=== PATIENT | male | born 1975 | race Hispanic/Latino ===

== ENCOUNTER 2018-10-11 01:54 | Emergency (ER) | payer SELFPAY ==
[2018-10-11 03:03] LABS: #Basophils 0.1 thou/uL (0.0-0.2); #Eosinphils 0.4 thou/uL (0.0-0.7); #Lymphocytes 2.8 thou/uL (1.20-3.40); #Monocytes 0.7 thou/uL (0.11-0.59); %Eosinophils 4.2 % (0.0-10.0); %Lymphocytes 30.9 % (21.0-51.0); %Monocytes 7.8 % (0.0-10.0); %Neutrophils 56.2 % (42.0-75.0); Hemoglobin 14.3 g/dL (14.0-18.0); Mean Corpuscular HGB CONC 34.2 g/dL (32.0-36.0); Mean Corpuscular Hemoglobin 32.4 pg (27.0-31.0); Mean Corpuscular Volume 94.7 fL (78.0-98.0); Platelet Count 315 thou/uL (130-400); RBC Distribution Width 12.1 % (11.5-14.5); Red Blood Cell (RBC) Count 4.42 mill/uL (4.70-6.10); White Blood Cell (WBC) Count 8.9 thou/uL (4.8-10.8)
[2018-10-11 03:25] LABS: ALT (SGPT) 37 U/L (8-55); AST (SGOT) 28 U/L (5-34); Alkaline Phosphatase 84 U/L (40-150); Anion Gap 12 mmol/L (10-20); BUN (Urea Nitrogen) 21 mg/dL (8.9-20.6); Bilirubin, Total 0.4 mg/dL (0.2-1.2); Calc. Creatinine Clearance 0 mL/min (70-130); Calcium 9.7 mg/dL (7.8-10.44); Carbon Dioxide 26 mmol/L (22-29); Chloride 104 mmol/L (98-107); Estimated GFR-MDRD 66; Globulin 3.2 g/dL (2.4-3.5); Glucose 100 mg/dL (70-105); Potassium 3.9 mmol/L (3.5-5.1); Protein, Total 7.2 g/dL (6.0-8.3); Sodium 138 mmol/L (136-145)
--- NOTE | 2018-10-11 08:20 | RAD ---
EXAM: 3 views of the left ankle HISTORY: Ankle pain COMPARISON: None FINDINGS: 3 views of the left ankle shows the patient to be status post ORIF of the distal fibula wit h a plate and screws and of the medial malleolus with 2 screws. Overlying skin abby are seen from recent surgery. Alignment of the ankle mortise is normal. IMPRESSION: Status post ORIF of the ankle as above without evidence of complication.
== END 2018-10-11 03:42 | disposition home or self-care (01) ==
LOC: ERS 01:54
DX: Z48.817 Encounter for surgical aftercare following surgery on the skin and subcutaneous tissue (principal); F17.210 Nicotine dependence, cigarettes, uncomplicated
CPT/HCPCS: 36415; 80053; 85025

== ENCOUNTER 2020-07-12 19:56 | Observation (INO) | payer SELFPAY ==
[~2020-07-12 19:56] MED LIST: Iopamidol-370 76% 500 ML 1 ML ONE
[2020-07-12] MEDS ORDERED: Boostrix 0.5 ML (Tdap) VIAL ONE (20:18)
[2020-07-12 20:41] LABS: #Basophils 0.1 thou/uL (0.0-0.2); #Eosinphils 0.2 thou/uL (0.0-0.7); #Monocytes 0.9 thou/uL (0.11-0.59); #Neutrophils 7.8 thou/uL (1.40-6.50); %Basophils 0.6 % (0.0-1.0); %Eosinophils 2.1 % (0.0-10.0); %Lymphocytes 18.5 % (21.0-51.0); %Monocytes 7.9 % (0.0-10.0); %Neutrophils 70.9 % (42.0-75.0); Hemoglobin 14.6 g/dL (14.0-18.0); Mean Corpuscular HGB CONC 34.1 g/dL (32.0-36.0); Mean Corpuscular Hemoglobin 33.1 pg (27.0-31.0); Mean Corpuscular Volume 97.1 fL (78.0-98.0); Mean Platelet Volume 7.9 fL (7.4-10.4); Platelet Count 244 thou/uL (130-400); RBC Distribution Width 12.3 % (11.5-14.5); Red Blood Cell (RBC) Count 4.42 mill/uL (4.70-6.10); White Blood Cell (WBC) Count 10.9 thou/uL (4.8-10.8)
[2020-07-12 21:03] LABS: ALT (SGPT) 39 U/L (8-55); AST (SGOT) 33 U/L (5-34); Albumin 3.5 g/dL (3.5-5.0); Alkaline Phosphatase 76 U/L (40-110); Anion Gap 15 mmol/L (10-20); BUN (Urea Nitrogen) 21 mg/dL (8.9-20.6); Bilirubin, Total 0.7 mg/dL (0.2-1.2); Calc. Creatinine Clearance 0 mL/min (70-130); Calcium 8.2 mg/dL (7.8-10.44); Carbon Dioxide 18 mmol/L (22-29); Chloride 110 mmol/L (98-107); Globulin 2.7 g/dL (2.4-3.5); Glucose 94 mg/dL (70-105); Potassium 4.1 mmol/L (3.5-5.1); Protein, Total 6.2 g/dL (6.0-8.3); Sodium 139 mmol/L (136-145)
[2020-07-12 21:04] LABS: Acetaminophen Less than 6.0 mcg/mL (10.0-30.0); Alcohol Less than 10 mg/dL (Less than 10); Salicylate Less than 8.0 mg/dL (15.0-30.0)
[2020-07-12 21:42] LABS: PTT 29.9 sec (22.9-36.1); Prothrombin Time 13.5 sec (12.0-14.7)
[2020-07-12] MEDS ORDERED: Dextrose 50% Abboject 50 ML SYRINGE SLOW IVP PRN (23:10)
[2020-07-12] MEDS ORDERED: Dextrose 5% in Water 1,000 ML IV PRN (23:10)
[2020-07-12] MEDS ORDERED: Ondansetron ODT 4 MG TAB PO PRN (23:10)
[2020-07-12 23:26] LABS: Lactic Acid 0.9 mmol/L (0.5-2.2)
[2020-07-13] MEDS ORDERED: Lactated Ringer's 1,000 ML IV SCH (00:30)
[2020-07-13] MEDS: Sodium Chloride 0.9% 1,000 ML IV SCH ×2 (01:26→11:42)
[2020-07-13] MEDS: Acetaminophen 325 MG TAB PO PRN ×2 (02:01→08:59)
[2020-07-13 02:15] VITALS: BMI 24.3
[2020-07-13 03:48] LABS: SARS-CoV-2 NAA Rapid Test Not Detected (NotDetected)
[2020-07-13 05:39] LABS: #Basophils 0.1 thou/uL (0.0-0.2); #Eosinphils 0.2 thou/uL (0.0-0.7); #Lymphocytes 2.1 thou/uL (1.20-3.40); #Monocytes 0.6 thou/uL (0.11-0.59); #Neutrophils 5.6 thou/uL (1.40-6.50); %Basophils 0.7 % (0.0-1.0); %Eosinophils 2.7 % (0.0-10.0); %Lymphocytes 24.8 % (21.0-51.0); %Monocytes 7.1 % (0.0-10.0); %Neutrophils 64.6 % (42.0-75.0); Hemoglobin 13.9 g/dL (14.0-18.0); Mean Corpuscular HGB CONC 33.7 g/dL (32.0-36.0); Mean Corpuscular Hemoglobin 33.2 pg (27.0-31.0); Mean Corpuscular Volume 98.3 fL (78.0-98.0); Mean Platelet Volume 7.8 fL (7.4-10.4); Platelet Count 244 thou/uL (130-400); RBC Distribution Width 12.2 % (11.5-14.5); Red Blood Cell (RBC) Count 4.19 mill/uL (4.70-6.10); White Blood Cell (WBC) Count 8.6 thou/uL (4.8-10.8)
[2020-07-13] MEDS ORDERED: Ibuprofen 200 MG TAB PO SCH (05:45)
[2020-07-13 05:59] LABS: Anion Gap 9 mmol/L (10-20); BUN (Urea Nitrogen) 16 mg/dL (8.9-20.6); Calc. Creatinine Clearance 72 mL/min (70-130); Calcium 8.5 mg/dL (7.8-10.44); Carbon Dioxide 27 mmol/L (22-29); Chloride 108 mmol/L (98-107); Glucose 93 mg/dL (70-105); Magnesium 1.8 mg/dL (1.6-2.6); Phosphorus 2.2 mg/dL (2.3-4.7); Potassium 3.4 mmol/L (3.5-5.1); Sodium 141 mmol/L (136-145)
[2020-07-13] MEDS ORDERED: Folic Acid 1 MG TAB PO SCH (09:00)
[2020-07-13] MEDS ORDERED: Amlodipine 5 MG TAB PO SCH (09:00)
[2020-07-13] MEDS ORDERED: Famotidine 20 MG TAB PO SCH (09:00)
[2020-07-13] MEDS ORDERED: Thiamine 100 MG TAB PO SCH (09:00)
[2020-07-13] MEDS ORDERED: Potassium Chloride 20 MEQ TAB PO SCH (09:30)
[2020-07-13] MEDS ORDERED: PHOS-NAK 1 PKT PACK PO SCH (09:30)
[2020-07-13 11:32] VITALS: BP 164/96; TEMP 98.1
[2020-07-13] MEDS ORDERED: traMADol HCl 50 MG TAB PO PRN (11:48)
[2020-07-13] MEDS ORDERED: Ibuprofen 200 MG TAB PO PRN (11:52)
== END 2020-07-13 13:20 | disposition home or self-care (01) ==
LOC: ERS 19:56 → SURG A 23:10
PROVIDERS: ADMIT Surgery; ATTEND Surgery
DX: S27.0XXA Traumatic pneumothorax, initial encounter (principal); S22.32XA Fracture of one rib, left side, initial encounter for closed fracture; S06.0X0A Concussion without loss of consciousness, initial encounter; G89.11 Acute pain due to trauma; R41.82 Altered mental status, unspecified; F19.10 Other psychoactive substance abuse, uncomplicated; I10 Essential (primary) hypertension; F17.210 Nicotine dependence, cigarettes, uncomplicated; Z20.822 Contact with and (suspected) exposure to COVID-19; Y04.2XXA Assault by strike against or bumped into by another person, initial encounter
CPT/HCPCS: 36415; 36416; 70450; 70486; 70498; 71045; 71260; 72125; 74177; 80048; 80053; 80307; 83605; 83735; 84100; 85025; 85610; 85730; 90471; 90715; 93005; G0378; Q9967; U0002; U0005

== ENCOUNTER 2020-11-08 22:05 | Emergency (ER) | payer SELFPAY ==
[2020-11-08] MEDS ORDERED: Lidocaine Viscous Sol 2% 15 ml UD Cup ONE (23:08)
== END 2020-11-09 00:12 | disposition home or self-care (01) ==
LOC: ERS 22:05
DX: T16.1XXA Foreign body in right ear, initial encounter (principal); W57.XXXA Bitten or stung by nonvenomous insect and other nonvenomous arthropods, initial encounter; F17.200 Nicotine dependence, unspecified, uncomplicated
CPT/HCPCS: 69200

== ENCOUNTER 2022-06-17 10:22 | Emergency (ER) | payer SELFPAY ==
[2022-06-17] MEDS ORDERED: Iopamidol-370 76% 500 ML MDV (1 ML CHARGE) ONE (10:28)
[2022-06-17] MEDS ORDERED: Proparacaine 0.5% Opth 15 ML BOT ONE (10:56)
[2022-06-17] MEDS ORDERED: Fluorescein Opthalmic Strip ONE ×2 (10:56→13:32)
[2022-06-17] MEDS ORDERED: Boostrix 0.5 ML (Tdap) VIAL (>/=7 yrs of age) ONE ×2 (11:18→11:34)
== END 2022-06-17 14:21 | disposition home or self-care (01) ==
LOC: ERS 10:22
DX: S05.01XA Injury of conjunctiva and corneal abrasion without foreign body, right eye, initial encounter (principal); F17.200 Nicotine dependence, unspecified, uncomplicated; W22.09XA Striking against other stationary object, initial encounter
CPT/HCPCS: 70481; 90471; 90715

== ENCOUNTER 2022-12-13 07:29 | Inpatient (IN) | payer SELFPAY ==
[2022-12-13 07:59] LABS: #Basophils 0.1 thou/uL (0.0-0.2); #Eosinphils 0.1 thou/uL (0.0-0.7); #Monocytes 1.3 thou/uL (0.11-0.59); %Basophils 0.6 % (0.0-1.0); %Eosinophils 0.8 % (0.0-10.0); %Lymphocytes 11.8 % (21.0-51.0); %Monocytes 8.8 % (0.0-10.0); %Neutrophils 77.4 % (42.0-75.0); Hematocrit 51.6 % (42.0-52.0); Hemoglobin 17.4 g/dL (14.0-18.0); Mean Corpuscular HGB CONC 33.7 g/dL (32.0-36.0); Mean Corpuscular Hemoglobin 31.5 pg (27.0-31.0); Mean Corpuscular Volume 93.5 fl (78.0-98.0); Mean Platelet Volume 10.5 fL (7.4-10.4); Platelet Count 250 10x3/uL (130-400); RBC Distribution Width 13.5 % (11.5-14.5); Red Blood Cell (RBC) Count 5.52 mill/uL (4.70-6.10); White Blood Cell (WBC) Count 14.2 10x3/uL (4.8-10.8)
[2022-12-13 08:10] LABS: Bacteria/HPF None Seen HPF (None Seen); Bilirubin Negative (Negative); Blood, Urine 3+ (Negative); CAUTI Indications for Culture Acute Hematuria; Clarity Extra Turbid (Clear); Glucose, Urine (Dipstick) Normal (Negative); Ketone, Urine Negative (Negative); Leukocyte 500 Leu/uL (Negative); Nitrite Negative (Negative); Protein, Urine (Dipstick) 100 mg/dL (Neg-Trace); RBC/HPF Greater than 50 HPF (0-3); Specific Gravity, Urine 1.019 (1.002-1.036); Squamous Epithelial None Seen HPF (0-3); Urobilinogen Normal mg/dL (Less than 2); WBC/HPF Greater than 50 HPF (0-3); pH, Urine 7.5 (5.0-9.0)
[2022-12-13 08:19] LABS: Urine Culture Reflex Yes Yes
[2022-12-13 08:27] LABS: ALT (SGPT) 32 U/L (8-55); AST (SGOT) 21 U/L (5-34); Albumin 4.1 g/dL (3.5-5.0); Alkaline Phosphatase 68 U/L (40-110); Anion Gap 12 mmol/L (10-20); BUN (Urea Nitrogen) 16 mg/dL (8.9-20.6); Bilirubin, Total 0.7 mg/dL (0.2-1.2); Calc. Creatinine Clearance 0 mL/min (70-130); Calcium 9.2 mg/dL (7.8-10.44); Carbon Dioxide 26 mmol/L (22-29); Chloride 102 mmol/L (98-107); Estimated GFR 76; Globulin 3.3 g/dL (2.4-3.5); Glucose 125 mg/dL (70-105); Potassium 3.8 mmol/L (3.5-5.1); Protein, Total 7.4 g/dL (6.0-8.3); Sodium 136 mmol/L (136-145)
[2022-12-13] MEDS ORDERED: Ondansetron PF 4 MG/2 ML Vial ONE (09:19)
[2022-12-13] MEDS ORDERED: Ketorolac Tromethamine 30 MG/ML VIAL ONE (09:19)
[2022-12-13] MEDS ORDERED: Doxycycline 100 MG CAP ONE (10:46)
[2022-12-13] MEDS ORDERED: CEFAZOLIN 2 GM VIAL ONE (10:46)
[2022-12-13] MEDS ORDERED: Sodium Chloride 0.9% 100 ML ONE (10:48)
[2022-12-13] MEDS ORDERED: Acetaminophen 325 MG TAB PO PRN (10:59)
[2022-12-13] MEDS ORDERED: Calcium Carbonate 500 MG ChewTAB PO PRN (10:59)
[2022-12-13] MEDS ORDERED: Ondansetron PF 4 MG/2 ML Vial IVP PRN (10:59)
[2022-12-13] MEDS ORDERED: Ondansetron ODT 4 MG TAB PO PRN (10:59)
[2022-12-13] MEDS ORDERED: Sodium Chloride 0.9% 1,000 ML IV SCH (11:00)
[2022-12-13] MEDS ORDERED: Azithromycin 200 MG/5 ML Oral Suspension PO SCH (11:15)
[2022-12-13] MEDS ORDERED: Azithromycin 250 MG TAB PO SCH (11:15)
[2022-12-13 11:40] VITALS: BMI 23.4
[2022-12-13] MEDS ORDERED: FLU VACC QS2023-24(6MOS UP)/PF 60 MCG/0.5 ML SYRINGE IM ONE (11:45)
[2022-12-13] MEDS: hydrALAZINE 20 MG/ML VIAL SLOW IVP PRN ×2 (12:39→20:29)
[2022-12-13] MEDS: traMADol HCl 50 MG TAB PO PRN ×2 (13:31→23:18)
[2022-12-13] MEDS ORDERED: Morphine 4 MG/ML VIAL SLOW IVP SCH (13:45)
[2022-12-13] MEDS: Morphine 2 MG/ML VIAL SLOW IVP PRN (20:29)
[2022-12-13 21:28] LABS: Chlam.trachomatis by PCR,Urine Not Detected (NotDetected); GC N.gonorrhoeae PCR,UrineVOID DETECTED (NotDetected)
[2022-12-13] MEDS ORDERED: tiZANidine HCl 4 MG TAB PO SCH (21:30)
[2022-12-14] MEDS: Morphine 2 MG/ML VIAL SLOW IVP PRN (05:48)
[2022-12-14 06:43] LABS: #Basophils 0.1 thou/uL (0.0-0.2); #Eosinphils 0.4 thou/uL (0.0-0.7); #Monocytes 0.9 thou/uL (0.11-0.59); %Basophils 0.8 % (0.0-1.0); %Eosinophils 3.7 % (0.0-10.0); %Lymphocytes 25.4 % (21.0-51.0); %Monocytes 9.4 % (0.0-10.0); %Neutrophils 60.2 % (42.0-75.0); Hematocrit 45.2 % (42.0-52.0); Hemoglobin 14.9 g/dL (14.0-18.0); Mean Corpuscular Volume 94.2 fl (78.0-98.0); Mean Platelet Volume 10.4 fL (7.4-10.4); Platelet Count 215 10x3/uL (130-400); RBC Distribution Width 13.6 % (11.5-14.5)
[2022-12-14 07:13] LABS: ALT (SGPT) 24 U/L (8-55); AST (SGOT) 19 U/L (5-34); Albumin 3.3 g/dL (3.5-5.0); Alkaline Phosphatase 56 U/L (40-110); Anion Gap 12 mmol/L (10-20); BUN (Urea Nitrogen) 14 mg/dL (8.9-20.6); Bilirubin, Total 0.3 mg/dL (0.2-1.2); Calc. Creatinine Clearance 86 mL/min (70-130); Calcium 8.5 mg/dL (7.8-10.44); Carbon Dioxide 23 mmol/L (22-29); Chloride 106 mmol/L (98-107); Estimated GFR 95; Globulin 2.9 g/dL (2.4-3.5); Glucose 95 mg/dL (70-105); Potassium 3.7 mmol/L (3.5-5.1); Protein, Total 6.2 g/dL (6.0-8.3); Sodium 137 mmol/L (136-145)
[2022-12-14 08:35] VITALS: TEMP 97.7
[2022-12-14] MEDS ORDERED: cefTRIAXone\\ROCEPHIN 2 GM in Sodium Chloride 0.9% 100 ML IVPB SCH (09:00)
[2022-12-14] MEDS: hydrALAZINE 20 MG/ML VIAL SLOW IVP PRN (09:08)
[2022-12-14] MEDS: traMADol HCl 50 MG TAB PO PRN (09:10)
[2022-12-14 10:37] VITALS: BP 165/98
== END 2022-12-14 15:12 | disposition home or self-care (01) | DRG 690 ==
LOC: ERS 07:29 → SUATTDRO 07:29 → T4-A 11:34
PROVIDERS: ADMIT Internal Medicine; ATTEND Family Medicine
DX: A54.01 Gonococcal cystitis and urethritis, unspecified (principal); F19.10 Other psychoactive substance abuse, uncomplicated; F17.210 Nicotine dependence, cigarettes, uncomplicated; Z98.890 Other specified postprocedural states
CPT/HCPCS: 36415; 74176; 80053; 81001; 83605; 85025; 86850; 86900; 86901; 87040; 87086; 87491; 87591; 96365; 96375; J0360; J0696; J1885; J2272; J2405; J3490; J7050

== ENCOUNTER 2024-01-15 20:27 | Emergency (ER) | payer SELFPAY ==
[2024-01-15] MEDS ORDERED: Ketorolac Tromethamine 30 MG (1 mL) VIAL ONE (21:29)
[2024-01-15] MEDS ORDERED: Lidocaine 1% PF 5 ML VIAL ONE (21:29)
[2024-01-15] MEDS ORDERED: Bacitracin 1 PK ONE (22:20)
== END 2024-01-15 23:18 | disposition home or self-care (01) ==
LOC: ERS 20:27
DX: S61.212A Laceration without foreign body of right middle finger without damage to nail, initial encounter (principal); F17.210 Nicotine dependence, cigarettes, uncomplicated; X58.XXXA Exposure to other specified factors, initial encounter
CPT/HCPCS: 12002; 96372; J1885